=== PATIENT | male | born 1970 | race American Indian/Alaskan Native ===

== ENCOUNTER 2019-01-14 09:24 | Observation (INO) | payer OTHER ==
--- NOTE | 2019-01-14 11:19 | Emergency Department Report ---
ED Extremity Problem HPI - General Chief complaint: Extremity Problem,Nontraumatic Stated complaint: LEFT LEG PAIN Time Seen by Provider: 01/14/19 10:02 Source: patient Mode of arrival: Ambulatory Limitations: No Limitations - History of Present Illness Initial comments: 48-year-old male reported this posterior left knee pain for the last 3 weeks. Patient states he initially thought he sprained his knee, but reports he is experiencing intermittent swelling of the knee, along with pain with ambulation. MD Complaint: extremity pain, extremity swelling -: week(s) (3) Location: left, lower extremity History of Same: No Quality: aching Consistency: intermittent Improves with: rest Worsens with: walking, palpation Associated Symptoms: denies: chest pain, shortness of breath - Related Data Home Medications Medication Instructions Recorded Confirmed Last Taken Lisinopril [Zestril TAB] 40 mg PO QDAY 01/14/19 01/14/19 01/13/19 NIFEdipine [Adalat cc] 90 mg PO DAILY 01/14/19 01/14/19 01/13/19 hydroCHLOROthiazide [HCTZ] 25 mg PO QDAY 01/14/19 01/14/19 01/13/19 Allergies Allergy/AdvReac Type Severity Reaction Status Date / Time No Known Allergies Allergy Unverified 01/14/19 09:29 ED Review of Systems ROS: Stated complaint: LEFT LEG PAIN Other details as noted in HPI Comment: All other systems reviewed and negative Constitutional: denies: chills, fever Respiratory: denies: shortness of breath Cardiovascular: denies: chest pain Musculoskeletal: joint swelling ED Past Medical Hx - Past Medical History Previous Medical History?: Yes Hx Hypertension: Yes - Surgical History Past Surgical History?: Yes Hx Appendectomy: Yes - Medications Home Medications: Home Medications Medication Instructions Recorded Confirmed Last Taken Type Lisinopril [Zestril TAB] 40 mg PO QDAY 01/14/19 01/14/19 01/13/19 History NIFEdipine [Adalat cc] 90 mg PO DAILY 01/14/19 01/14/19 01/13/19 History hydroCHLOROthiazide [HCTZ] 25 mg PO QDAY 01/14/19 01/14/19 01/13/19 History ED Physical Exam - General Limitations: No Limitations General appearance: alert, in no apparent distress - Head Head exam: Present: atraumatic, normocephalic - Eye Eye exam: Present: normal appearance, PERRL, EOMI - ENT ENT exam: Present: mucous membranes moist - Neck Neck exam: Present: normal inspection - Respiratory Respiratory exam: Present: normal lung sounds bilaterally. Absent: respiratory distress - Cardiovascular Cardiovascular Exam: Present: regular rate, normal rhythm - GI/Abdominal GI/Abdominal exam: Absent: distended - Extremities Exam Extremities exam: Present: other (mild tenderness to posterior aspect of left knee, no swelling or edema present) - Neurological Exam Neurological exam: Present: alert, oriented X3 - Psychiatric Psychiatric exam: Present: normal affect, normal mood - Skin Skin exam: Present: warm, dry, intact, normal color ED Course Vital Signs 01/14/19 01/14/19 01/14/19 09:32 10:01 13:45 Temperature 98.9 F 98.4 F Pulse Rate 97 H 83 Respiratory 18 16 16 Rate Blood Pressure 173/103 [Left] Blood Pressure 155/111 145/98 [Right] O2 Sat by Pulse 97 Oximetry ED Medical Decision Making - Lab Data Result diagrams: 01/14/19 11:43 01/14/19 11:43 - Radiology Data Radiology results: report reviewed, image reviewed - Medical Decision Making Pt has no insurance. DVT seen on US. Will not be able to afford Xarelto or Eliquis. Will admit for heparinization and initiation of coumadin. - Differential Diagnosis DVT, Acuna's cyst, sprain Critical care attestation.: If time is entered above; I have spent that time in minutes in the direct care of this critically ill patient, excluding procedure time. ED Disposition Clinical Impression: DVT (deep venous thrombosis) Disposition: OP ADMIT IP TO THIS HOSP Is pt being admited?: Yes Condition: Stable Time of Disposition: 11:26
--- NOTE | 2019-01-14 11:21 | Vascular Lab Report ---
DUPLEX DOPPLER LOWER EXTREMITY VEINS, LEFT INDICATION: Left leg pain for 3 weeks. TECHNIQUE: Duplex doppler imaging was performed through the veins of the left lower extremity using venous compression and other maneuvers. COMPARISON: No relevant prior imaging study available. FINDINGS: Left Common femoral vein: Negative. Left Superficial femoral vein: Negative. Left Popliteal vein: Noncompressibility and absent color Doppler flow.. Left Calf veins: Noncompressibility and absent color Doppler flow.. Additional findings: None.. IMPRESSION: Positive for DVT in the left popliteal vein and upper calf veins. Signer Name: Gerry Truong Jr, MD Signed: 01/14/2019 11:17 AM Workstation Name: [id number]
[2019-01-14 11:57] LABS: Basophils # (Auto) 0.1 K/mm3 (0.0-0.1); Basophils % (Auto) 0.6 % (0.0-1.8); Eosinophils # (Auto) 0.1 K/mm3 (0.0-0.4); Eosinophils % (Auto) 0.9 % (0.0-4.3); Hematocrit 48.1 % (35.5-45.6); Hemoglobin 16.3 gm/dl (11.8-15.2); Lymphocytes # (Auto) 2.5 K/mm3 (1.2-5.4); Mean Corpuscular HGB Conc 34 % (32-34); Mean Corpuscular Volume 95 fl (84-94); Monocytes # (Auto) 1.1 K/mm3 (0.0-0.8); Monocytes % (Auto) 11.7 % (0.0-7.3); Platelet Count 262 K/mm3 (140-440); Red Blood Count 5.05 M/mm3 (3.65-5.03); Red Cell Distribution Width 15.4 % (13.2-15.2)
[2019-01-14 12:08] LABS: INR 0.93 (0.87-1.13)
[2019-01-14 12:09] LABS: Partial Thromboplastin Time 27.2 Sec. (24.2-36.6)
[2019-01-14 12:20] LABS: BUN/Creatinine Ratio 12; Blood Urea Nitrogen 12 mg/dL (9-20); Calcium 9.4 mg/dL (8.4-10.2); Hemolysis Index 10
[2019-01-14] MEDS ORDERED: LOVENOX SUB-Q ONE (12:24)
[2019-01-14] MEDS ORDERED: TYLENOL PO PRN (15:57)
[2019-01-14] MEDS ORDERED: SODIUM CHLORIDE FLUSH SYRINGE 10 ML IV PRN (15:57)
[2019-01-14] MEDS ORDERED: ZOFRAN IV PRN (15:57)
[2019-01-14] MEDS ORDERED: PERCOCET 5/325 PO PRN (15:58)
[2019-01-14] MEDS ORDERED: DILAUDID IV PRN (15:58)
[2019-01-14] MEDS ORDERED: REGLAN IV PRN (15:58)
--- NOTE | 2019-01-14 16:06 | History and Physical Report ---
History of Present Illness Date of examination: 01/14/19 Date of admission: 01/14/19 12:50 Chief complaint: Left lower extremity swelling for 1 month History of present illness: 48-year-old -Italian male with history of hypertension comes in for left calf pain for last 1 month. Patient activated the pain and the cough to sprain. Patient has Betadine was and also swelling of the cough muscle bigger. No fever or chills. No shortness of breath. Pain increases with walking. No recent travel. No palpitations. Past Medical History Previous Medical History?: Yes Hypertension: Yes Surgical History Past Surgical History?: Yes Appendectomy: Yes Family history Htn Social History Doesn't Smoke No alcohol Medications Home Medications: Home Medications Medication Instructions Recorded Confirmed Last Taken Type Lisinopril [Zestril TAB] 40 mg PO QDAY 01/14/19 01/14/19 01/13/19 History NIFEdipine [Adalat cc] 90 mg PO DAILY 01/14/19 01/14/19 01/13/19 History hydroCHLOROthiazide [HCTZ] 25 mg PO QDAY 01/14/19 01/14/19 01/13/19 History Review of Systems ROS: Stated complaint: LEFT LEG PAIN Other details as noted in HPI Comment: All other systems reviewed and negative Constitutional: denies: chills, fever Respiratory: denies: shortness of breath Cardiovascular: denies: chest pain Musculoskeletal: joint swelling Left leg swelling below knee for 1 month Pain on walking no shortness of breath Otherwise 14 point review of systems negative Medications and Allergies Allergies Allergy/AdvReac Type Severity Reaction Status Date / Time No Known Allergies Allergy Unverified 01/14/19 09:29 Home Medications Medication Instructions Recorded Confirmed Last Taken Type Lisinopril [Zestril TAB] 40 mg PO QDAY 01/14/19 01/14/19 01/13/19 History NIFEdipine [Adalat cc] 90 mg PO DAILY 01/14/19 01/14/19 01/13/19 History hydroCHLOROthiazide [HCTZ] 25 mg PO QDAY 01/14/19 01/14/19 01/13/19 History Exam - Constitutional Vitals: Temp Pulse Resp BP Pulse Ox 98.6 F 86 18 148/102 94 01/14/19 14:58 01/14/19 14:58 01/14/19 14:58 01/14/19 14:58 01/14/19 14:58 General appearance: Present: no acute distress, well-nourished - EENT Eyes: Present: PERRL ENT: hearing intact, clear oral mucosa - Neck Neck: Present: supple, normal ROM - Respiratory Respiratory effort: normal Respiratory: bilateral: CTA - Cardiovascular Heart rate: 78 Rhythm: regular Heart Sounds: Present: S1 & S2. Absent: rub, click - Extremities Extremities: no ischemia, pulses intact, pulses symmetrical, No edema Extremity abnormal: tenderness (left swollen and tender. Homans sign positive) Peripheral Pulses: within normal limits - Abdominal General gastrointestinal: Present: soft, non-tender, non-distended, normal bowel sounds Male genitourinary: Present: normal - Rectal Rectal Exam: deferred - Integumentary Integumentary: Present: clear, warm, dry - Musculoskeletal Musculoskeletal: gait normal, strength equal bilaterally - Psychiatric Psychiatric: appropriate mood/affect, intact judgment & insight - Neurologic Neurologic: CNII-XII intact, moves all extremities - Allied Health Allied health notes reviewed: nursing, case management Results - Labs CBC & Chem 7: 01/14/19 11:43 01/14/19 11:43 Labs: Laboratory Last Values WBC 9.5 K/mm3 (4.5-11.0) 01/14/19 11:43 RBC 5.05 M/mm3 (3.65-5.03) H 01/14/19 11:43 Hgb 16.3 gm/dl (11.8-15.2) H 01/14/19 11:43 Hct 48.1 % (35.5-45.6) H 01/14/19 11:43 MCV 95 fl (84-94) H 01/14/19 11:43 MCH 32 pg (28-32) 01/14/19 11:43 MCHC 34 % (32-34) 01/14/19 11:43 RDW 15.4 % (13.2-15.2) H 01/14/19 11:43 Plt Count 262 K/mm3 (140-440) 01/14/19 11:43 Lymph % (Auto) 26.0 % (13.4-35.0) 01/14/19 11:43 Cavalier % (Auto) 11.7 % (0.0-7.3) H 01/14/19 11:43 Eos % (Auto) 0.9 % (0.0-4.3) 01/14/19 11:43 Baso % (Auto) 0.6 % (0.0-1.8) 01/14/19 11:43 Lymph # 2.5 K/mm3 (1.2-5.4) 01/14/19 11:43 Cavalier # 1.1 K/mm3 (0.0-0.8) H 01/14/19 11:43 Eos # 0.1 K/mm3 (0.0-0.4) 01/14/19 11:43 Baso # 0.1 K/mm3 (0.0-0.1) 01/14/19 11:43 Seg Neutrophils % 60.8 % (40.0-70.0) 01/14/19 11:43 Seg Neutrophils # 5.8 K/mm3 (1.8-7.7) 01/14/19 11:43 PT 12.2 Sec. (12.2-14.9) 01/14/19 11:43 INR 0.93 (0.87-1.13) 01/14/19 11:43 APTT 27.2 Sec. (24.2-36.6) 01/14/19 11:43 Sodium 140 mmol/L (137-145) 01/14/19 11:43 Potassium 3.5 mmol/L (3.6-5.0) L 01/14/19 11:43 Chloride 98.3 mmol/L (98-107) 01/14/19 11:43 Carbon Dioxide 28 mmol/L (22-30) 01/14/19 11:43 17 mmol/L 01/14/19 11:43 BUN 12 mg/dL (9-20) 01/14/19 11:43 1.0 mg/dL (0.8-1.5) 01/14/19 11:43 Estimated GFR > 60 ml/min 01/14/19 11:43 12 % 01/14/19 11:43 Glucose 89 mg/dL (75-100) 01/14/19 11:43 Calcium 9.4 mg/dL (8.4-10.2) 01/14/19 11:43 Short CBC 01/14/19 Range/Units 11:43 WBC 9.5 (4.5-11.0) K/mm3 Hgb 16.3 H (11.8-15.2) gm/dl Hct 48.1 H (35.5-45.6) % Plt Count 262 (140-440) K/mm3 [facility] [place] 01/14/19 11:43 Sodium 140 Potassium 3.5 L Chloride 98.3 Carbon Dioxide 28 BUN 12 Creatinine 1.0 Glucose 89 Calcium 9.4 - Imaging and Cardiology EKG: report reviewed Imaging and Cardiology: Left lower extremity venous duplex scan FINDINGS: Left Common femoral vein: Negative. Left Superficial femoral vein: Negative. Left Popliteal vein: Noncompressibility and absent color Doppler flow.. Left Calf veins: Noncompressibility and absent color Doppler flow.. Additional findings: None.. IMPRESSION: Positive for DVT in the left popliteal vein and upper calf veins. Assessment and Plan Advance Directives: Yes (full code) VTE prophylaxis?: Chemical Plan of care discussed with patient/family: Yes - Patient Problems (1) DVT (deep venous thrombosis) Current Visit: Yes Status: Acute Qualifiers: DVT location: lower extremity Affected thrombotic vein of extremity: popliteal Laterality: left Plan to address problem: DVT in left lower extremity especially the popliteal vein Patient is started on Lovenox 100 mg every 12 Patient to be bridged to Coumadin and discharge when INR is between 2 and 3 (2) Hypertension Current Visit: Yes Status: Chronic Qualifiers: Hypertension type: essential hypertension Qualified Code(s): I10 - E ssential (primary) hypertension Plan to address problem: Continue antihypertensives (3) Hypokalemia Current Visit: Yes Status: Acute Plan to address problem: Mild Supplemented (4) DVT prophylaxis Current Visit: Yes Status: Acute Plan to address problem: On Lovenox and GI prophylaxis
[2019-01-14] MEDS ORDERED: COUMADIN 10 MG, COUMADIN 2.5 MG PO SCH (16:30)
[2019-01-14] MEDS ORDERED: COUMADIN PO SCH (18:00)
[2019-01-14] MEDS: PEPCID PO SCH (19:36)
[2019-01-14] MEDS: NACL 0.9% 1000 ML 1,000 ML IV SCH (19:37)
[2019-01-14] MEDS: LOVENOX SUB-Q SCH (21:38)
[2019-01-14] MEDS: SODIUM CHLORIDE FLUSH SYRINGE 10 ML IV SCH (21:39)
[2019-01-14] MEDS: PROCARDIA XL PO SCH (23:05)
[2019-01-14] MEDS: HCTZ PO SCH (23:05)
[2019-01-14] MEDS: ZESTRIL PO SCH (23:05)
[2019-01-15 07:14] LABS: Basophils # (Auto) 0.1 K/mm3 (0.0-0.1); Basophils % (Auto) 0.9 % (0.0-1.8); Eosinophils # (Auto) 0.1 K/mm3 (0.0-0.4); Eosinophils % (Auto) 0.9 % (0.0-4.3); Hematocrit 46.9 % (35.5-45.6); Hemoglobin 16.2 gm/dl (11.8-15.2); Lymphocytes # (Auto) 2.5 K/mm3 (1.2-5.4); Lymphocytes % (Auto) 31.1 % (13.4-35.0); Mean Corpuscular HGB Conc 35 % (32-34); Mean Corpuscular Volume 94 fl (84-94); Monocytes % (Auto) 12.9 % (0.0-7.3); Platelet Count 252 K/mm3 (140-440); Red Blood Count 4.99 M/mm3 (3.65-5.03)
[2019-01-15 07:25] LABS: INR 1.03 (0.87-1.13)
[2019-01-15 07:28] LABS: Alanine Aminotransferase 18 units/L (7-56); Albumin 3.7 g/dL (3.9-5); BUN/Creatinine Ratio 11; Blood Urea Nitrogen 11 mg/dL (9-20); Calcium 9.3 mg/dL (8.4-10.2); Hemolysis Index 1
[2019-01-15] MEDS: NACL 0.9% 1000 ML 1,000 ML IV SCH (09:31)
[2019-01-15] MEDS: PROCARDIA XL PO SCH (09:35)
[2019-01-15] MEDS: PEPCID PO SCH (09:35)
[2019-01-15] MEDS: HCTZ PO SCH (09:35)
[2019-01-15] MEDS: LOVENOX SUB-Q SCH (09:35)
[2019-01-15] MEDS: SODIUM CHLORIDE FLUSH SYRINGE 10 ML IV SCH (09:36)
[2019-01-15] MEDS: ZESTRIL PO SCH (09:37)
[2019-01-15] MEDS ORDERED: K-DUR PO SCH (10:00)
--- NOTE | 2019-01-15 11:18 | Discharge Summary ---
Providers - Providers Date of Admission: 01/14/19 12:50 Attending physician: ABBIE SAUCEDO MD [facility] Reason for admission: DVT Condition: Stable Hospital course: 48-year-old -[place] male with history of hypertension comes in for left calf pain for last 1 month. Patient activated the pain and the cough to sprain. Patient has Betadine was and also swelling of the cough muscle bigger. No fever or chills. No shortness of breath. Pain increases with walking. No recent travel. No palpitations. spoke extensively with the patient about Eliquis vs Coumadin. Patient understands the risk and need to follow up and follow through for Eliquis and options if unable to afford following the 30 days. Patient verbalized understanding and the need to follow with his PCP also for risk considering distance family hx IMPRESSION: Positive for DVT in the left popliteal vein and upper calf veins. (1) DVT (deep venous thrombosis) (2) Hypertension (3) Hypokalemia Supplemented . Disposition: TO HOME OR SELFCARE Time spent for discharge: 35 MINS Core Measure Documentation - Palliative Care Palliative Care/ Comfort Measures: Not Applicable - Core Measures Any of the following diagnoses?: DVT/PE - VTE Discharge Requirements Deep Vein Thrombosis/Pulmonary Embolism Present on Admission: Yes Has pt received <5 days of overlap therapy or INR<2.0: Yes (criteria for overlap therapy at discharge: on overlap therapy for less than 5 days or INR<2.0) Anticoagulant overlap therapy prescribed at discharge: Yes Exam - Physical Exam Narrative exam: General appearance: Present: no acute distress, well-nourished - EENT Eyes: Present: PERRL ENT: hearing intact, clear oral mucosa - Neck Neck: Present: supple, normal ROM - Respiratory Respiratory effort: normal Respiratory: bilateral: CTA - Cardiovascular Heart rate: 78 Rhythm: regular Heart Sounds: Present: S1 & S2. Absent: rub, click - Extremities Extremities: no ischemia, pulses intact, pulses symmetrical, No edema Extremity abnormal: tenderness (left swollen and tender. Homans sign positive) Peripheral Pulses: within normal limits - Abdominal General gastrointestinal: Present: soft, non-tender, non-distended, normal bowel sounds Male genitourinary: Present: normal - Rectal Rectal Exam: deferred - Integumentary Integumentary: Present: clear, warm, dry - Musculoskeletal Musculoskeletal: gait normal, strength equal bilaterally - Psychiatric Psychiatric: appropriate mood/affect, intact judgment & insight - Neurologic Neurologic: CNII-XII intact, moves all extremities - Allied Health Allied health notes reviewed: nursing, case management - Constitutional Vitals: Temp Pulse Resp BP Pulse Ox 98.0 F 81 20 156/95 97 01/15/19 06:06 01/15/19 09:37 01/15/19 06:06 01/15/19 09:37 01/15/19 06:06 Plan Follow up with: DWAYNE HO MD [Primary Care Provider] - 3-5 Days COY KAUFMAN MD [Staff Physician] - 7 Days Prescriptions: Apixaban [Eliquis] 10 mg PO BID #28 tablet Apixaban [Eliquis] 5 mg PO BID #60 tablet
[2019-01-15] MEDS ORDERED: ELIQUIS PO SCH ×2 (12:00)
[2019-01-15 13:00] VITALS: BP 146/104
[2019-01-22] MEDS ORDERED: ELIQUIS PO SCH (10:00)
== END 2019-01-15 14:57 | disposition home or self-care (01) ==
LOC: ED 09:24 → INTOOBSV 12:50 → 3A 12:50
PROVIDERS: ADMIT Internal Medicine; ATTEND Internal Medicine
DX: I82.402 Acute embolism and thrombosis of unspecified deep veins of left lower extremity (principal); I10 Essential (primary) hypertension; E87.6 Hypokalemia
CPT/HCPCS: 36415; 80048; 80053; 83036; 85025; 85610; 85730; 93971; 96372; 99284; G0378; J1650; J7030; 96360

== ENCOUNTER 2020-09-05 11:44 | Emergency (ER) | payer OTHER ==
[2020-09-05] MEDS ORDERED: IBUPROFEN 800 MG TAB PO ONE (12:25)
--- NOTE | 2020-09-05 12:26 | Emergency Department Report ---
ED Lower Extremity HPI - General Chief Complaint: Extremity Injury, Lower Stated Complaint: RT FOOT TOE PAIN Time Seen by Provider: 09/05/20 12:19 Source: patient Mode of arrival: Ambulatory Limitations: No Limitations - History of Present Illness Initial Comments: 49 yr old male presents to ED with c/o right 5th toe pain. Onset about 2 weeks ago. He states he noticed mild pain after getting a pedicure, then later that evening he went and played basket ball but does not recall injurying it during basket ball. He states after playing basketball pain got worse and since it has been getting increasingly more painful. He reports swelling to the toe. He denies any apparent wound or drainage or redness. He has a history of hypertension but denies any other significant past history. MD Complaint: other (right 5th toe ) -: Gradual, week(s) (2 saturdays ago ) - Related Data Home Medications Medication Instructions Recorded Confirmed Last Taken NIFEdipine [Adalat cc] 90 mg PO DAILY 01/14/19 01/14/19 01/13/19 hydroCHLOROthiazide [HCTZ] 25 mg PO QDAY 01/14/19 01/14/19 01/13/19 lisinopriL [Zestril TAB] 40 mg PO QDAY 01/14/19 01/14/19 01/13/19 Previous Rx's Medication Instructions Recorded Last Taken Type Apixaban [Eliquis] 5 mg PO BID #60 tablet 01/15/19 Unknown Rx Apixaban [Eliquis] 10 mg PO BID #28 tablet 01/15/19 Unknown Rx Acetaminophen/Codeine [Tylenol 1 tab PO Q4HR PRN #12 tablet 09/05/20 Unknown Rx /Codeine # 3 tab] cephALEXin [Keflex] 500 mg PO Q6HR #40 capsule 09/05/20 Unknown Rx Allergies Allergy/AdvReac Type Severity Reaction Status Date / Time No Known Allergies Allergy Verified 09/05/20 12:05 ED Review of Systems ROS: Stated complaint: RT FOOT TOE PAIN Other details as noted in HPI ED Past Medical Hx - Past Medical History Hx Hypertension: Yes Hx Congestive Heart Failure: No Hx Diabetes: No Hx Asthma: Yes Hx COPD: No - Surgical History Hx Appendectomy: Yes - Social History Smoking Status: Never Smoker Substance Use Type: Marijuana - Medications Home Medications: Home Medications Medication Instructions Recorded Confirmed Last Taken Type NIFEdipine [Adalat cc] 90 mg PO DAILY 01/14/19 01/14/19 01/13/19 History hydroCHLOROthiazide [HCTZ] 25 mg PO QDAY 01/14/19 01/14/19 01/13/19 History lisinopriL [Zestril TAB] 40 mg PO QDAY 01/14/19 01/14/19 01/13/19 History Apixaban [Eliquis] 5 mg PO BID #60 tablet 01/15/19 Unknown Rx Apixaban [Eliquis] 10 mg PO BID #28 tablet 01/15/19 Unknown Rx Acetaminophen/Codeine [Tylenol 1 tab PO Q4HR PRN #12 tablet 09/05/20 Unknown Rx /Codeine # 3 tab] cephALEXin [Keflex] 500 mg PO Q6HR #40 capsule 09/05/20 Unknown Rx ED Physical Exam - General Limitations: No Limitations General appearance: alert, in no apparent distress - Head Head exam: Present: atraumatic, normocephalic, normal inspection - Neck Neck exam: Present: normal inspection - Respiratory Respiratory exam: Present: normal lung sounds bilaterally. Absent: respiratory distress - Cardiovascular Cardiovascular Exam: Present: regular rate, normal rhythm, normal heart sounds - Extremities Exam Extremities exam: Present: other (Severe tto right great toe more so distally with mod swelling noted to toe; He does have superficial wound/ulcerated area around the lateral nail fold of toe and its very ttp; no apparent abscess, or cellulitis or drainage noted. cap refill normal, dorsalis pulse normal. ) - Neurological Exam Neurological exam: Present: alert, oriented X3, CN II-XII intact ED Course Vital Signs 09/05/20 12:05 Temperature 98 F Pulse Rate 90 Respiratory 20 Rate Blood Pressure 164/105 O2 Sat by Pulse 97 Oximetry ED Lower Extremity MDM - Radiology Data Radiology results: report reviewed Patient: SALAZAR NETTLES MR#: [id number] : 1970 Acct:[id number] Age/Sex: 49 / M ADM Date: 09/05/20 Loc: ED Attending Dr: Ordering Physician: LISS DOMINGO Date of Service: 09/05/20 Procedure(s): XR toe(s) 2+V RT Accession Number(s): [id number] cc: LISS DOMINGO Fluoro Time In Minutes: Right foot 3 views INDICATION: Fifth toe pain FINDINGS: Degenerative changes great toe MTP joint. No acute fractures seen in the fifth metatarsal or fifth phalanx. No soft tissue abnormality is seen. Signer Name: Vini Wong MD Signed: 09/05/2020 12:59 PM Workstation Name: [id number] Transcribed By: ANDRÉS Dictated By: SILVERIO WONG MD Electronically Authenticated By: SILVERIO WONG MD Signed Date/Time: 09/05/201258 DD/ 58 TD/TT: - Medical Decision Making Xray of toe shows nothing acute. Patient has wound/superifical ulcerate area medial aspect of right 5th to in webspace area and around lateral nail fold. Suspect this could have been from the pedicure he had. There is no associated abscess, or cellulitis or gangrene. He is not toxic, and well appearing and not in any significant distress. He is neurologically intact. His BP is elevated but he has hx of HTN and has not taken his meds today. Remaining VS stable. At this time there is no indication for any further w/u or admission. Pt will be tx with abx and wound care was discussed with patient. He expressed understanding of instruction and agreed with plan. Pt was stable at time of d.c Critical care attestation.: If time is entered above; I have spent that time in minutes in the direct care of this critically ill patient, excluding procedure time. ED Disposition Clinical Impression: Wound, open, toe, Wound infection Disposition: DC-01 TO HOME OR SELFCARE Is pt being admited?: No Does the pt Need Aspirin: No Condition: Stable Instructions: Wound Infection, Wound Care, Adult Additional Instructions: Take the antibiotics as prescribed. Take the pain as prescribed. Keep wound clean daily with soap and water. Dry well and you can apply thin layer of neosporin after each cleaning. Elevte your leg as often as possible. Follow up with PCP in 3-5 days for wound check. Return to ED if worse. Prescriptions: cephALEXin [Keflex] 500 mg PO Q6HR #40 capsule Acetaminophen/Codeine [Tylenol /Codeine # 3 tab] 1 tab PO Q4HR PRN #12 tablet PRN Reason: Pain Referrals: ISHMAEL CORONADO MD [Staff Physician] - 3-5 Days Forms: Work/School Release Form(ED) Time of Disposition: 13:47
--- NOTE | 2020-09-05 13:04 | XRay Report ---
Right foot 3 views INDICATION: Fifth toe pain FINDINGS: Degenerative changes great toe MTP joint. No acute fractures seen in the fifth metatarsal o r fifth phalanx. No soft tissue abnormality is seen. Signer Name: Vini Wong MD Signed: 09/05/2020 12:59 PM Workstation Name: [id number]
[2020-09-05 14:16] VITALS: BP 171/106
== END 2020-09-05 14:16 | disposition home or self-care (01) ==
LOC: ED 11:44
DX: S91.101A Unspecified open wound of right great toe without damage to nail, initial encounter (principal); I10 Essential (primary) hypertension; J45.909 Unspecified asthma, uncomplicated; F12.10 Cannabis abuse, uncomplicated; Z79.899 Other long term (current) drug therapy; X58.XXXA Exposure to other specified factors, initial encounter; Y93.89 Activity, other specified; Y92.89 Other specified places as the place of occurrence of the external cause; Y99.8 Other external cause status
CPT/HCPCS: 99283